=== PATIENT | female | born 1960 ===

== ENCOUNTER 2023-08-12 09:03 | Inpatient (IN) | payer OTHER ==
[~2023-08-12] VITALS: Ht 154.9 cm; Wt 69.9 kg
[2023-08-12 08:27] LABS: HEMATOCRIT 45.5 % (36.0-45.00); HEMOGLOBIN 15.8 g/dL (12.0-15.00); MEAN CELL VOLUME 89.8 fL (80.00-100.00); MEAN CORPUSCULAR HEMOGLOBIN 31.1 pg (27.00-32.0); MEAN CORPUSCULAR HGB CONC 34.6 g/dl (32.0-36.0); PLATELET COUNT 205 K/uL (150-450); RED BLOOD COUNT 5.07 M/uL (4.00-6.00); RED CELL DISTRIBUTION WIDTH 12.5 % (11.5-14.5)
[2023-08-12 08:28] LABS: PH,URINE 5.5 (5.0-8.0); URINE APPEARANCE Clear; URINE BILIRRUBIN Negative (NEGATIVE); URINE BLOOD Negative; URINE COLOR Dark Yellow; URINE GLUCOSE Negative (NEGATIVE); URINE LEUKOCYTE Negative; URINE NITRATE Negative; URINE PROTEIN Negative (NEGATIVE); URINE UROBILINOGEN 0.2 E.U./dl
[2023-08-12 08:30] LABS: URINE BACTERIA 1408.6 uL (0.0-1933); URINE EPITHELIAL CELLS 15.9 uL (0.0-38.8); URINE RBC 75.4 uL (0.0-20.8); URINE WBC 4.4 uL (0.0-23.2)
[2023-08-12 08:43] LABS: INR 1.03; PARTIAL THROMBOPLASTIN TIME 27.6 SECONDS (22.0-34.0); PROTHROMBIN TIME 10.8 SECONDS (9.0-11.5)
[2023-08-12 08:58] LABS: ALBUMIN 3.9 gm/dL (3.4-5.0); BILIRUBIN TOTAL 0.5 mg/dL (0.3-1.2); CREATININE SERUM 0.67 mg/dL (0.55-1.02); GFR 88.61; GLOBULINA 3.5 G/DL (2.4-3.5); POTASSIUM 3.97 mEq/L (3.5-5.1); TOTAL PROTEIN 7.4 gm/dL (6.4-8.2)
[2023-08-12 09:14] LABS: CALCIUM 9.5 mg/dL (8.5-10.1)
[2023-08-12] MEDS ORDERED: LEVOTHYROXINE25 MCG PO (10:49)
[2023-08-12] MEDS ORDERED: LOVAZA1 GM PO (10:50)
[2023-08-12] MEDS ORDERED: GLUMETZA500 MG PO (10:50)
[2023-08-12] MEDS ORDERED: VITAMIN D310 MCG/1 M PO (10:51)
[2023-08-15] MEDS ORDERED: CLONAZEPAM1 MG (08:05)
[2023-08-15] MEDS ORDERED: RESTORIL30 MG (08:05)
[2023-08-15] MEDS ORDERED: VENLAFAXINE HCL75 M1 (08:05)
[2023-08-15] MEDS ORDERED: IMIPRAMINE HCL25 MG (08:05)
[2023-08-15 14:34] LABS: HEMATOCRIT 43.4 % (36.0-45.00); MEAN CELL VOLUME 89.5 fL (80.00-100.00); MEAN CORPUSCULAR HEMOGLOBIN 30.9 pg (27.00-32.0); MEAN CORPUSCULAR HGB CONC 34.5 g/dl (32.0-36.0); PLATELET COUNT 183 K/uL (150-450); RED BLOOD COUNT 4.85 M/uL (4.00-6.00); RED CELL DISTRIBUTION WIDTH 12.4 % (11.5-14.5)
[2023-08-15 15:07] LABS: ALBUMIN 3.5 gm/dL (3.4-5.0); CALCIUM 8.9 mg/dL (8.5-10.1); CREATININE SERUM 0.55 mg/dL (0.55-1.02); GFR 111.28; MAGNESIUM 1.7 mg/dL (1.8-2.4); PHOSPHOROUS 3.2 mg/dL (2.5-4.9); POTASSIUM 4.27 mEq/L (3.5-5.1)
[2023-08-16 07:14] LABS: ALBUMIN 3.2 gm/dL (3.4-5.0); CALCIUM 7.9 mg/dL (8.5-10.1); CREATININE SERUM 0.53 mg/dL (0.55-1.02); GFR 116.14; MAGNESIUM 1.7 mg/dL (1.8-2.4); POTASSIUM 3.68 mEq/L (3.5-5.1)
[2023-08-16 07:17] LABS: HEMOGLOBIN 14.4 g/dL (12.0-15.00); MEAN CELL VOLUME 88.8 fL (80.00-100.00); MEAN CORPUSCULAR HEMOGLOBIN 31.3 pg (27.00-32.0); MEAN CORPUSCULAR HGB CONC 35.2 g/dl (32.0-36.0); PLATELET COUNT 168 K/uL (150-450); RED BLOOD COUNT 4.62 M/uL (4.00-6.00); RED CELL DISTRIBUTION WIDTH 12.4 % (11.5-14.5)
[2023-08-16] MEDS ORDERED: TRAM1TAB98 PO (08:09)
== END 2023-08-16 10:29 | disposition home or self-care (01) | DRG 349 ==
LOC: O/R 08-15 05:00 → SURH 08-15 05:00
PROVIDERS: ADMIT Surgery; ATTEND Surgery
PROC: 3E0T3BZ Introduction of Anesthetic Agent into Peripheral Nerves and Plexi, Percutaneous Approach (ICD-10-PCS; 2023-08-15)
PROC: 0DBP7ZZ Excision of Rectum, Via Natural or Artificial Opening (ICD-10-PCS; principal; 2023-08-15 16:30)
DX: K62.1 Rectal polyp (principal); Z20.822 Contact with and (suspected) exposure to COVID-19
CPT/HCPCS: 0184T; 64430